=== PATIENT | female | born 1955 | race Caucasian/White ===

== ENCOUNTER 2018-06-17 13:55 | Emergency (ER) | payer SELFPAY ==
[~2018-06-17] VITALS: Ht 162.6 cm; Wt 81.3 kg
[2018-06-17 14:39] VITALS: Ht 162.6 cm; Wt 81.3 kg
[2018-06-17 15:55] VITALS: BP 160/80
== END 2018-06-17 15:55 | disposition home or self-care (01) ==
LOC: ED 13:55
DX: S83.92XA Sprain of unspecified site of left knee, initial encounter (principal); M54.5 Low back pain; I10 Essential (primary) hypertension; E11.9 Type 2 diabetes mellitus without complications; M81.0 Age-related osteoporosis without current pathological fracture; M19.90 Unspecified osteoarthritis, unspecified site; Z98.890 Other specified postprocedural states; X50.1XXA Overexertion from prolonged static or awkward postures, initial encounter; Y93.89 Activity, other specified; Y92.89 Other specified places as the place of occurrence of the external cause; Y99.8 Other external cause status

== ENCOUNTER 2018-10-19 11:14 | Emergency (ER) | payer SELFPAY ==
[~2018-10-19] VITALS: Ht 160 cm; Wt 80.8 kg
[2018-10-19 11:20] VITALS: Ht 160 cm; Wt 80.8 kg
[2018-10-19 12:28] LABS: BASOPHIL % 0.3 % (0-2); PLATELET COUNT 224 x10^3mcL (130-400)
[2018-10-19 12:34] LABS: CALCIUM 8.7 mg/dL (8.5-10.1); CARBON DIOXIDE 29.1 mmol/L (21-32); CHLORIDE SERUM 103 mmol/L (98-107); CREATININE SERUM 0.7 mg/dL (0.6-1.0); GFR1 > 60 mL/min; GLUCOSE SERUM 234 mg/dL (74-106); SODIUM SERUM 138 mmol/L (136-145)
[2018-10-19 12:36] LABS: C REACTIVE PROTEIN 1.8 mg/dL (<=0.9); URIC ACID 4.3 mg/dL (2.6-6.0)
[2018-10-19 14:39] VITALS: BP 169/64
== END 2018-10-19 14:47 | disposition home or self-care (01) ==
LOC: ED 11:14
PROVIDERS: Emergency Medicine
DX: M79.672 Pain in left foot (principal); E11.9 Type 2 diabetes mellitus without complications; I10 Essential (primary) hypertension; E78.00 Pure hypercholesterolemia, unspecified; M19.90 Unspecified osteoarthritis, unspecified site
CPT/HCPCS: 36415; Q0092